=== PATIENT | male | born 1960 | race Caucasian/White ===

== ENCOUNTER 2023-12-31 12:40 | Emergency (ER) | payer OTHER, BC ==
[~2023-12-31] VITALS: Ht 170.2 cm; Wt 90.7 kg
[2023-12-31 12:40] VITALS: BP_SYST 137; PULSE 61; RESP 19; TEMP 97.8; O2SAT 97
[2023-12-31] MEDS ORDERED: LIDOCAINE 1% 10 MG/ML, 20 ML MDV INJ ONE (14:00)
[2023-12-31] MEDS: BACITRACIN 1 GM OINT TP ONE (14:14)
[2023-12-31] MEDS: DIPHTH,PERTUSS(ACELL),TET VAC 0.5 ML VIAL (Tdap) I.M. ONE (14:15)
[2023-12-31 14:24] VITALS: BP_SYST 137; PULSE 61; RESP 19; TEMP 97.8; O2SAT 97
== END 2023-12-31 14:25 | disposition home or self-care (01) ==
LOC: SED 12:40
DX: S51.812A Laceration without foreign body of left forearm, initial encounter (principal); R03.0 Elevated blood-pressure reading, without diagnosis of hypertension; Z23 Encounter for immunization; W26.8XXA Contact with other sharp object(s), not elsewhere classified, initial encounter; Y93.89 Activity, other specified; Y92.89 Other specified places as the place of occurrence of the external cause; Y99.8 Other external cause status
CPT/HCPCS: 90715; 99283; J2001